=== PATIENT | male | born 1995 | race Caucasian/White ===

== ENCOUNTER 2021-03-02 19:28 | Outpatient (REF) | payer OTHER, SELFPAY ==
--- NOTE | ~2021-03-02 | MR_ITS ---
MRI OF THE BRAIN WITHOUT IV CONTRAST INDICATION: Migraine. COMPARISON: None available TECHNIQUE: Multiplanar multisequence MR imaging of the brain was obtained without IV contrast. 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 The lesion results in leftward deviation of the infundibulum and abuts without resulting in mass effect on the undersurface of the optic chiasm. There is no hydrocephalus, extra-axial surface collection, or herniation. No parenchymal signal abnormality. The major flow voids at the skull base are preserved. There is no acute infarct on diffusion-weighted imaging. There is no intracranial hemorrhage on the gradient recalled echo acquisition. The cerebellar tonsils are normally positioned. The cerebellum and brainstem are normal. The craniocervical junction is normal. Osseous marrow signal intensity is homogenous. The visualized soft tissues are unremarkable. 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 The lesion results in leftward deviation of the infundibulum and abuts without resulting in mass effect on the undersurface of the optic chiasm. Critical findings discussed with Dr. Cho at 8:46 AM on 03/03/2021.
== END 2021-03-02 19:29 | disposition home or self-care (01) ==
LOC: HO.MRI 19:28
PROVIDERS: PCP Nurse Practitioner Family; Visit Provider Nurse Practitioner Family
DX: G43.909 Migraine, unspecified, not intractable, without status migrainosus (principal)
CPT/HCPCS: 70551

== ENCOUNTER 2021-08-28 10:16 | Outpatient (REF) | payer OTHER, SELFPAY ==
[2021-08-28 12:27] LABS: Cortisol Random 6.8 ug/dL
[2021-08-30 11:46] LABS: Follicle Stimulating Hormone 2.3 mIU/mL (1.6-8.0); Lutenizing Hormone 1.5 mIU/mL (1.5-9.3); Prolactin 40.7 ng/mL (2.0-18.0)
[2021-09-02 11:12] LABS: Testosterone, Total 42 ng/dL (250-1100)
== END 2021-08-28 10:17 | disposition home or self-care (01) ==
LOC: HO.HMGCLDS 10:16
PROVIDERS: PCP Nurse Practitioner Family; Visit Provider Internal Medicine Endocrinology, Diabetes & Metabolism
DX: E23.6 Other disorders of pituitary gland (principal)
CPT/HCPCS: 36415; 82533; 83001; 83002; 84146; 84403

== ENCOUNTER 2022-07-14 08:12 | Outpatient (REF) | payer OTHER, SELFPAY ==
[2022-07-14 10:37] LABS: MANUAL DIFF FLAG NO
[2022-07-14 10:41] LABS: Basophils Absolute Auto 0.1 X10*3/uL (0.0-0.2); Eosinophils Absolute Auto 0.2 X10*3/uL (0.0-0.4); Eosinophils Percent Auto 3.8 % (0-4); Hematocrit 44.8 % (42.0-52.0); Imm Gran Abs Auto 0.01 X10*3/uL (0.00-0.03); Imm Gran Pct Auto 0.2 % (0.0-0.4); Lymphocytes Absolute Auto 2.2 X10*3/uL (1.2-4.9); Lymphocytes Percent Auto 44.7 % (20-40); Mean Corpuscular HGB Conc 33.5 g/dl (31.0-36.0); Mean Corpuscular Hemoglobin 29.6 pg (27.0-33.0); Mean Corpuscular Volume 88.5 fL (80.0-98.0); Mean Platelet Volume 9.6 fL (9.4-12.4); Monocytes Absolute Auto 0.4 X10*3/uL (0.1-1.2); Monocytes Percent Auto 7.5 % (2-11); Neutrophils Absolute Auto 2.1 x10*3/uL (2.0-8.3); Neutrophils Percent Auto 42.8 % (45-73); Platelet Count 169 X10*3/uL (160-400); Red Blood Count 5.06 X10*6/uL (4.60-5.80); Red Cell Distribution Width 12.2 % (11.0-16.0); White Blood Count 4.9 X10*3/uL (4.8-10.8)
[2022-07-14 11:03] LABS: Alanine Aminotransferase 83 U/L (0-40); Albumin Level 4.2 g/dL (3.5-5.0); Alkaline Phosphatase 54 U/L (39-117); Anion Gap 10 (12-20); Aspartate Amino Transferase 35 U/L (5-37); Bilirubin Total 0.7 mg/dL (0.0-1.0); Blood Urea Nitrogen 15 mg/dL (9-16); Calcium 9.3 mg/dL (8.4-10.2); Carbon Dioxide 28 mmol/L (22-29); Chloride 107 mmol/L (96-108); Cholesterol 232 mg/dL; Estimated Glomerular Filt Rate > 60; Glucose Fasting 91 mg/dL (60-99); HDL Cholesterol 45 mg/dL; LDL Cholesterol Calculated 164 mg/dl; Potassium 4.2 mmol/L (3.3-5.1); Sodium 141 mmol/L (135-145); Total Protein 6.8 g/dL (6.5-8.0); Triglycerides 119 mg/dL
[2022-07-14 11:20] LABS: TSH reflex Free T4 2.79 uIU/mL (0.32-4.0)
[2022-07-14 13:34] LABS: Appearance Urine Clear; Color Urine Yellow; Glucose Urine UA Negative (Negative); Leukocyte Esterase Urine Negative (Negative); Nitrite Urine Negative (Negative); Specific Gravity - Urine 1.025 (1.005-1.025); UMIC TRIGGER UACC YES; Urine Blood Negative (Negative); Urine Ketones Negative (Negative); Urine Protein 30 (1+) mg/dL (Neg-Trace)
[2022-07-14 13:37] LABS: Bacteria Urine None Seen (None Seen); RBC Urine 0-2 /HPF (0-2); Squamous Epithelial Cell Urine 0-2 /HPF (0-2); WBC Urine 0-5 /HPF (0-5)
[2022-07-18 07:29] LABS: HBS Num1 0.51 mIU/mL (0-7.99); HBc Num1 0.13 S/CO (0.00-0.79); HBsAGNum1 0.39 S/CO (0.00-0.99); Hepatitis A Antibody IgM 0.16 Index (0-0.79); Hepatitis B Core Antibody Nonreactive (Nonreactive); Hepatitis B Surface Antigen Negative (Negative); ~HepC Num1 0.09 S/CO (0.00-0.79); ~Hepatitis A Antibody IgM Nonreactive (Nonreactive); ~Hepatitis B Surface Antibody NONREACTIVE (Nonreactive); ~Hepatitis C Antibody Nonreactive (Nonreactive)
== END 2022-07-14 08:13 | disposition home or self-care (01) ==
LOC: HO.HMGCLDS 08:12
PROVIDERS: PCP Nurse Practitioner Family; Visit Provider Nurse Practitioner Family
DX: G43.909 Migraine, unspecified, not intractable, without status migrainosus (principal); R74.8 Abnormal levels of other serum enzymes; F41.9 Anxiety disorder, unspecified
CPT/HCPCS: 36415; 80053; 80061; 81001; 84443; 85025; 86704; 86706; 86709; 86803; 87340

== ENCOUNTER 2022-07-26 10:00 | Outpatient (REF) | payer OTHER, SELFPAY ==
--- NOTE | ~2022-07-26 | US_ITS ---
EXAMINATION: US ABDOMEN COMPLETE CLINICAL INFORMATION: Elevated liver enzymes. COMPARISON: None available. TECHNIQUE: Real-time imaging of the abdominal viscera. Technically limited study secondary to bowel gas. FINDINGS: PANCREAS: The visualized portions of the pancreas are unremarkable but a large portion of the gland is obscured by bowel gas. ABDOMINAL AORTA: The visualized portions are unremarkable but large portions of the aorta are obscured by bowel gas. INFERIOR VENA CAVA: Visualized portions are normal. LIVER: The liver is normal in size. The liver contour is normal. There is diffuse increased liver parenchymal echogenicity, consistent with hepatic steatosis. No focal hepatic lesion. There is no intrahepatic biliary duct dilatation seen. GALLBLADDER: Normal. The gallbladder is physiologically distended without evidence of stones, sludge, polyps, wall thickening or pericholecystic fluid. COMMON BILE DUCT: Normal in caliber measuring 0.39 cm in diameter. RIGHT KIDNEY: Normal. No hydronephrosis. No renal calculi or focal parenchymal lesions. The kidney measures 10.5 cm in maximum dimension. LEFT KIDNEY: Normal. No hydronephrosis. No renal calculi or focal parenchymal lesions. The kidney measures 10.9 cm in maximum dimension. SPLEEN: Normal. The spleen measures 11.2 cm in maximum dimension. FREE FLUID: None. US/US abdomen complete IMPRESSION: Hepatic steatosis.
[2022-07-26 11:39] LABS: Appearance Urine Clear; Color Urine Yellow; Glucose Urine UA Negative (Negative); Leukocyte Esterase Urine Negative (Negative); Nitrite Urine Negative (Negative); Specific Gravity - Urine 1.015 (1.005-1.025); Urine Blood Negative (Negative); Urine Ketones Negative (Negative); Urine Protein Negative (Neg-Trace)
[2022-07-26 11:46] LABS: Bacteria Urine None Seen (None Seen); Hyaline Casts Urine 0-2 /LPF (0-2); RBC Urine 0-2 /HPF (0-2); Squamous Epithelial Cell Urine 0-2 /HPF (0-2); WBC Urine 0-5 /HPF (0-5)
== END 2022-07-26 10:01 | disposition home or self-care (01) ==
LOC: HO.HMGCX 10:00
PROVIDERS: PCP Nurse Practitioner Family; Visit Provider Nurse Practitioner Family
DX: R74.8 Abnormal levels of other serum enzymes (principal); R80.9 Proteinuria, unspecified
CPT/HCPCS: 76700; 81001; 87086

== ENCOUNTER 2022-10-03 14:00 | Outpatient (AMB) | payer OTHER, SELFPAY ==
[2022-10-03 14:19] VITALS: BP 110/78; PULSE 66; O2SAT 97; BMI 37.8
--- NOTE | 2022-10-03 14:19 | MHC.PC.OV ---
Vital Signs 10/03/22 14:19 Height 5 ft 7 in Weight 241 lb 6 oz BMI 37.8 BP 110/78 Blood Pressure Location Lt brachial Position Sitting Pulse 66 Pulse Source Pulse Oximeter Pulse Oximetry (%) 97 Oxygen Delivery Method Room Air Intake Visit Reasons: Annual PE Allergies No Known Allergies Allergy (Verified 10/03/22 14:21) Medication List - Last Reconciled 10/03/22 by [facility] cabergoline 0.5 mg PO 2XW sumatriptan succinate take 1 tab at onset of headache; if no relief may repeat 1 tab after at least 2 hrs; max = 4 tabs/24 hr PO 30 days Tobacco use date assessed: 10/03/22 Dental Screening Dental Screen Date: 10/03/22 Did you have a dental visit in the last 12 months?: No Did you have a dental problem in the last 6 months where you did not have access to dental care?: No Was dental information given to patient?: No HPI Annual PE HPI Details Pt is here for a PE. Will order labs. 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 He has not heard anything about this. Will place new referral. Pt will call me if he does not hear anything about this. Pt has seen endo for this as well and was told it was shrinking. [facility] Medical History Fatty liver Pituitary adenoma Pituitary apoplexy Family History Father Substance use disorder Mother Substance use disorder Social History Housing: Apartment Patient Tobacco Use Status: Former Tobacco user Years Smoked: quit 6 months ago e-Cigarette/Vaping Use: Currently Using Second Hand Smoke Exposure: No service: No Current occupational status: employed Current occupation: [employer] Current occupational exposures/hazards: No Cognitive needs: No Hearing needs: No Vision needs: No Questionnaire Thrive Questionnaire Date Thrive assessed: 02/23/21 DEEPTHI-7 AMB Questionnaire DEEPTHI-7 Date DEEPTHI - 7 assessed: 02/23/21 Source: Developed by Drs. Miguel Angel Garduno, Latha Fletcher, Lalo Hood and colleagues, with an educational kristin from [employer]. Review of Systems Const Denies chills and Denies fever(s) Eyes Denies blurry vision ENT Denies vertigo, Denies dizziness and Denies sore throat Card Denies chest pain at rest, Denies chest pain with activity, Denies diaphoresis, Denies dyspnea and Denies dyspnea on exertion Resp Denies cough, Denies dyspnea, Denies dyspnea on exertion and Denies wheezing GI Denies abdominal pain, Denies melena, Denies hematochezia, Denies constipation, Denies diarrhea and Denies loose stools Denies hematuria Musc Denies numbness and Denies tingling Skin/Breast Denies lesions Neuro Denies vertigo, Denies dizziness, Denies numbness and Denies tingling Psych Denies anxiety, Denies depression, Denies homicidal ideation, Denies suicidal ideation and Denies other (substance abuse) Aller/Immun Denies wheezing Physical exam (Primary Care) Vital Signs: Last Vital Signs Pulse 66 10/03/22 14:19 BP 110/78 10/03/22 14:19 Pulse Ox 97 10/03/22 14:19 Oxygen Delivery Method Room Air 10/03/22 14:19 BMI result Body Mass Index 37.8 Tobacco/Smoking Status: Tobacco use Status Tobacco use date assessed 10/03/22 10/03/22 14:23 Patient Tobacco Use Status Former Tobacco user 10/03/22 14:23 e-Cigarette/Vaping Use Currently Using 10/03/22 14:23 Thrive Assessment: Date of Thrive Assessment Date Thrive assessed 02/23/21 10/03/22 14:23 Const General: cooperative Nutritional Appearance: obese Orientation/consciousness: patient oriented x3 HENMT Head: Yes normal to inspection, Yes normocephalic and Yes atraumatic Ears: TM's normal bilaterally Eyes General: appearance normal, both eyes and all related structures Alignment and Position: alignment normal and position normal Neck Neck: Yes normal visual inspection and Yes no lymphadenopathy Thyroid: Thyroid normal Resp Effort & Inspection: normal respiratory effort Auscultation: clear to auscultation bilaterally Cardio Rate: regular rate Rhythm: regular rhythm Heart sounds: S1 normal heart sound present, S2 normal heart sound present and no murmurs GI Palpation (GI): Soft to palpation and nontender Auscultation: normal bowel sounds Male General Exam: Yes normal external exam Penis: normal penis Scrotum: scrotum normal, testes descended bilaterally and no inguinal hernias Testes: no testicular mass Skin Rashes: no rashes Neuro General: patient oriented x3, moves all extremities, no focal motor deficits and deep tendon reflexes 2+ bilaterally Romberg Test: Negative Psych Appearance: grossly normal Mental Status: mental status grossly normal Speech and movement: Normal speech and movement present Affect: normal affect Attitude: cooperative Thought process: Normal thought process present Thought content: Normal thought content present Insight: Good insight present (Psych) Judgement: Good judgement present (Psych) Assessment and Plan Assessment & Plan (1) Physical exam: Code(s): Z00.00 - Encounter for general adult medical examination without abnormal findings (2) 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 Scribed for CHRISTOPHER Dupree-MISSY by Kathrine Poole medical information officer, on 10/03/2022 at 14:25 EST. Orders: Orders Comprehensive [place]. Panel Fast Today Z00.00 - Encounter for general adult medical examination without abnormal findings Lipid Panel Today Z00.00 - Encounter for general adult medical examination without abnormal findings TSH reflex Free T4 Today Z00.00 - Encounter for general adult medical examination without abnormal findings Complete Blood Count Auto Diff Today Z00.00 - Encounter for general adult medical examination without abnormal findings UA CC w/rflx Micro + Cult Today Z00.00 - Encounter for general adult medical examination without abnormal findings Referrals Neuro Spine Referral D35.2 - Benign neoplasm of pituitary gland, E23.6 - Other disorders of pituitary gland Medications: New ibuprofen 600 mg PO TID 30 days PRN 90 tabs 0RF pain Coding Level of Care Code Est Pt Prev Care 18-39y(80204) Diagnoses Physical exam Z00.00 Pituitary apoplexy E23.6 Pituitary adenoma D35.2
== END 2022-10-03 14:48 | disposition home or self-care (01) ==
PROVIDERS: Visit Provider Nurse Practitioner Family
DX: Z00.00 Encounter for general adult medical examination without abnormal findings (principal); E23.6 Other disorders of pituitary gland; D35.2 Benign neoplasm of pituitary gland
CPT/HCPCS: 99395

== ENCOUNTER 2024-08-30 12:45 | Emergency (ER) | payer OTHER, SELFPAY ==
--- NOTE | ~2024-08-30 | XR_ITS ---
CLINICAL HISTORY: trauma, pain, swelling 3 view left ankle Comparison: None provided Findings: No acute fractures. Ankle mortise intact. No significant loss of joint space, osteophytes, or erosions. There is an ankle effusion. No radiopaque foreign body. There is anterolateral soft tissue swelling. IMPRESSION: No acute fracture or dislocation. This document has been electronically signed by: Vaishnavi Mercado DO on 08/30/2024 14:02:04
[2024-08-30 13:26] VITALS: BP 119/82; PULSE 79; RESP 20; TEMP 36.1; O2SAT 98; BMI 32.9
--- NOTE | 2024-08-30 13:29 | ED.GENADULT ---
HPI - General Adult General Chief complaint: Extremity Injury, Lower Stated complaint: ankle injury Time Seen by Provider: 08/30/24 15:19 Source: patient and RN notes reviewed Limitations: no limitations History of Present Illness HPI narrative: 28-year-old male, history of pituitary adenoma, presents for evaluation left ankle pain. Patient states he was stepping off of a trailer when he slipped, twisted the ankle. He is unable to bear weight. Decreased range of motion. He denies any previous injury. The incident occurred just prior to arrival. He denies any paresthesias or paralysis. He did not take any medication for this. Patient is otherwise feeling well. He did not strike his head. Related Data Home Medications ?Medication ?Instructions ?Recorded ?Confirmed cabergoline 0.5 mg tablet 0.5 mg PO 2XW 04/24/21 10/03/22 Previous Rx's ?Medication ?Instructions ?Recorded sumatriptan succinate 25 mg tablet See Rx Instructions PO .COMPLEX 30 07/06/21 days #14 tabs ibuprofen 600 mg tablet 600 mg PO TID PRN pain 30 days #90 10/03/22 tabs naproxen 500 mg tablet (Naprosyn) 500 mg PO BID PRN pain #20 tabs 08/30/24 Allergies Allergy/AdvReac Type Severity Reaction Status Date / Time No Known Allergies Allergy Verified 08/30/24 13:29 Review of Systems Review of Systems: Yes all other systems are reviewed and are negative Musculoskeletal: Musculoskeletal: Denies back pain, Denies deformity and Denies joint swelling PMFSH Past Medical History Medical History Fatty liver Pituitary adenoma Pituitary apoplexy Family History Family History Father Substance use disorder Mother Substance use disorder Social History Social History Housing: Apartment Patient Tobacco Use Status: Former Tobacco user Years Smoked: quit 6 months ago e-Cigarette/Vaping Use: Currently Using Second Hand Smoke Exposure: No Advance Directives: No Advance Directives Information Provided: No Do you have a plan to hurt others: No Plan service: No Current occupational status: employed Current occupation: [employer] Current occupational exposures/hazards: No Cognitive needs: No Hearing needs: No Vision needs: No Physical Exam ED Vital Signs: Vital Signs - 24 hr 08/30/24 13:26 Temperature 96.9 F Pulse Rate 79 Respiratory Rate 20 Blood Pressure 119/82 Pulse Oximetry 98 Oxygen Delivery Method Room Air BMI result Body Mass Index 32.9 Const General: cooperative, alert and awake Resp Other: Lung sounds clear throughout Cardio Other: Regular rate and rhythm Back/Spine/Pelvis Other: [employer] is 5/5 bilaterally. Full range of motion of the lower extremities except the left ankle secondary to pain. There was soft tissue swelling and slight ecchymosis to the lateral aspect of the left malleolus. Diffuse tenderness in this region. There is no proximal tibial tenderness. No 5th metatarsal tenderness. No metatarsal tenderness. DP pulses are +1 and equal. Capillary refill is less than 2 seconds Skin Other: No skin breakdown surrounding the left ankle. Course Course Course Narrative: Medical screening exam performed. Please refer to detailed history, exam, evaluation, and management by primary provider. Slipped and twisted left ankle. Unable to bear weight or move foot. DP pulses are +1. Capillary refills less than 2 seconds. Tylenol and x-ray ordered. Reevaluation(s) Reevaluation #1: Reviewed x-ray findings, no acute process. Aircast to the left ankle provided as well as crutches. Reviewed all discharge instructions. Patient expressed understanding and has no further questions at this time. Work note provided. Medications Administered Discontinued Medications Generic Name Dose Route Start Last Admin Trade Name Freq PRN Reason Stop Dose Admin Acetaminophen 975 mg 08/30/24 13:29 08/30/24 13:31 Acetaminophen 325 Mg Tablet PO 08/30/24 13:30 975 mg ONCE ONE Administration Medical Decision Making Medical Decision Making MDM Narrative: 28-year-old male, left ankle injury. Check x-ray for suspected fracture. Differential Diagnosis Differential Diagnoses: The differential diagnosis associated with the presentation includes Fracture Dislocation Contusion Sprain Radiology Impression Discussion of test interpretation with radiology: I have reviewed the radiologist's reading. Radiologist Impression: [address] [address] XRay Report Signed Patient: Toni Cruz MR#: [id number] : 1995 Acct:[id number] Age/Sex: 28 / M ADM Date: 08/30/24 Loc: HO.ED Attending Dr: Ordering Physician: Amor Rodrigues Date of Service: 08/30/24 Procedure(s): XR ankle LT min 3V Accession Number(s): [id number] cc: Alexsander Noel [facility]-; Amor Rodrigues~ CLINICAL HISTORY: trauma, pain, swelling 3 view left ankle Comparison: None provided Findings: No acute fractures. Ankle mortise intact. No significant loss of joint space, osteophytes, or erosions. There is an ankle effusion. No radiopaque foreign body. There is anterolateral soft tissue swelling. IMPRESSION: No acute fracture or dislocation. This document has been electronically signed by: Vaishnavi Mercado DO on 08/30/2024 14:02:04 Dictated By: Vaishnavi Mercado MD Signed By: <Electronically signed by Vaishnavi Mercado MD in OV> 08/30/24 1403 DD/ 01 TD/TT: 08/30/241401 Thermodynamicist: Prescription Management I considered prescription management with: Pain Medication Discharge Plan Discharge Clinical Impression: Left ankle sprain Patient Disposition: Home, Self-Care Instructions: Ankle Sprain (ED) Additional Instructions: Rest. Ice. Elevate. Air cast and crutches as directed. Weightbear as tolerated. Naproxen as directed for pain. Take with food. Orthopedic referral provided, if needed. Follow-up with your primary care provider. Call this week to schedule a follow-up appointment. Return to the emergency department if you have any worsening of symptoms, or any concerns. Get well soon! Prescriptions: New naproxen [Naprosyn] 500 mg tablet 500 mg PO BID PRN (Reason: pain) Qty: 20 0RF No Action ibuprofen 600 mg tablet 600 mg PO TID PRN (Reason: pain) 30 Days Qty: 90 0RF cabergoline 0.5 mg tablet 0.5 mg PO 2XW sumatriptan succinate 25 mg tablet See Rx Instructions PO .COMPLEX 30 Days Qty: 14 0RF Rx Instructions: take 1 tab at onset of headache; if no relief may repeat 1 tab after at least 2 hrs; max = 4 tabs/24 hr PO Referrals: Jennifer Newell MD [Physician, Hand Surgery] Stand Alone Forms: Work/School Release Print Language: Prydeinig
[2024-08-30 15:41] VITALS: BP 119/82; PULSE 79; RESP 20; TEMP 36.1; O2SAT 98
== END 2024-08-30 15:41 | disposition home or self-care (01) ==
PROVIDERS: Emergency Provider Emergency Medicine; PCP Nurse Practitioner Family
DX: S93.402A Sprain of unspecified ligament of left ankle, initial encounter (principal); X50.1XXA Overexertion from prolonged static or awkward postures, initial encounter; Y93.9 Activity, unspecified; Y92.9 Unspecified place or not applicable; Y99.8 Other external cause status; Z79.899 Other long term (current) drug therapy; Z87.891 Personal history of nicotine dependence
CPT/HCPCS: 73610; 99283

== ENCOUNTER → 2024-08-30 13:29 | Outpatient (BNV) | payer OTHER, SELFPAY | PROVIDERS: PCP Nurse Practitioner Family; Visit Provider Radiology Diagnostic Radiology | DX: R22.42 Localized swelling, mass and lump, left lower limb (principal); M25.572 Pain in left ankle and joints of left foot; S99.912A Unspecified injury of left ankle, initial encounter | CPT/HCPCS: 73610 ==

== ENCOUNTER 2024-12-29 10:56 | Outpatient (AMB) | payer OTHER, SELFPAY ==
[2024-12-29 11:09] VITALS: BP 118/70; PULSE 61; O2SAT 96; BMI 39.5
--- NOTE | 2024-12-29 11:09 | MHC.PC.OV ---
Vital Signs 12/29/24 11:09 Height 5 ft 7 in Weight 252 lb BMI 39.5 BP 118/70 Pulse 61 Pulse Oximetry (%) 96 Oxygen Delivery Method Room Air Intake Visit Reasons: PE Overdue Tools Administrator Required: No Allergies No Known Allergies Allergy (Verified 08/30/24 13:29) Medication List - Last Reconciled 12/29/24 by Alexsander Noel PATIENT CARE NURSING ASSISTANT- cabergoline 0.5 mg PO 2XW ibuprofen 600 mg PO TID PRN 30 days naproxen (Naprosyn) 500 mg PO BID PRN Tobacco use date assessed: 12/29/24 Dental Screening Dental Screen Date: 12/29/24 Did you have a dental visit in the last 12 months?: Yes Did you have a dental problem in the last 6 months where you did not have access to dental care?: No Was dental information given to patient?: Patient has dentist HPI PE Overdue HPI Details History of Present Illness The patient is a 29-year-old male presenting for a physical exam. He reports doing well overall. He has a history of pituitary adenoma/ pituitary apoplexy, for which he sees neurosurgery on a regular basis. The patient reports the adenoma has shrunk recently. His medical history is also significant for obesity. Health Maintenance The plan includes administering a Tdap vaccine today, advising the patient to get a flu vaccine at his pharmacy, and ordering fasting labs to be done in the near future. 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 Review of Systems - General: Reports doing well. - Cardiovascular: Denies chest pain. - Respiratory: Denies shortness of breath. - Gastrointestinal: Denies abdominal pain, blood in stool, constipation, or diarrhea. - Genitourinary: Denies urinary issues. - Psychiatric: Denies suicidal or homicidal ideation. Physical Exam General: Cooperative, healthy appearing, comfortable, no acute distress, well developed, and obese Orientation: Patient oriented x3 Limitations: No limitations Head: Normal to inspection Ears: Hearing grossly normal bilaterally Nose: Normal external nose present Face and sinus: Normal facial exam Eyes: Appearance normal, both eyes and all related structures Neck: Normal visual inspection and Yes full ROM Respiratory: Normal respiratory effort and able to speak in complete sentences. Clear to auscultation bilaterally Cardiovascular: Regular rate and rhythm. Normal S1 and S2 GI: Normal to inspection. Soft to palpation and nontender : testicles without masses/lesions and no hernias appreciated Skin: No rashes or lesions noted Neuro: Patient oriented x3 Extremities: Normal to inspection Results Plan 1. Pituitary Adenoma The patient has a history of pituitary adenoma and is followed by neurosurgery on a regular basis. He reports it has shrunk since the last evaluation. He will continue to follow up with neurosurgery. 2. Obesity The patient is obese. Discussion Notes I will have him receive a Tdap today. I advised that he can get his flu vaccine at his pharmacy. He will also get fasting labs in the near future. Patient Instructions - Please get your flu vaccine at your local pharmacy. - You will need to have fasting blood tests done in the near future. COUNTS INCLUDE 234 BEDS AT THE [facility] Medical History Fatty liver Pituitary apoplexy Pituitary adenoma Family History Father Substance use disorder Mother Substance use disorder Social History Housing: Apartment Patient Tobacco Use Status: Former Tobacco user Years Smoked: quit 6 months ago e-Cigarette/Vaping Use: Currently Using Second Hand Smoke Exposure: No service: No Current occupational status: employed Current occupation: [employer] Current occupational exposures/hazards: No Cognitive needs: No Hearing needs: No Vision needs: No Questionnaire PHQ-9 Over the last 2 weeks, how often have you been bothered by any of the following problems? 1. Little interest or pleasure in doing things: not at all 2. Feeling down, depressed, or hopeless: not at all 3. Trouble falling or staying asleep, or sleeping too much: not at all 4. Feeling tired or having little energy: not at all 5. Poor appetite or overeating: not at all 6. Feeling bad about yourself - or that you are a failure or have let yourself or your family down: not at all 7. Trouble concentrating on things, such as reading the newspaper or watching television: not at all 8. Moving or speaking so slowly that other people could have noticed. Or the opposite - being so fidgety or restless that you have been moving around a lot more than usual: not at all 9. Thoughts that you would be better off or of hurting yourself in some way: not at all Total score: 0 Depression Screening Interpretation: Negative Depression Screening Done: Yes 21465 - PHQ-9 Billing: Yes Source: Developed by Drs. Miguel Angel Garduno, Latha Fletcher, Lalo Hood and colleagues, with an educational kristin from [employer]. Thrive Questionnaire Date Thrive assessed: 02/23/21 I am a: Patient What is your living situation today?: I have a steady place to live Within the past 12 months, did the food you bought not last and you didn't have the money to get more?: Never true Within the past 12 months, did you worry whether your food would run out before you got money to buy more?: Never true Do you have trouble paying for medicines?: No Do you have trouble getting transportation to medical appointments?: No Do you have trouble paying your heating and electricity bill?: No Do you have trouble taking care of your child, family member or friend?: No Do you have trouble with day-to-day activities such as bathing, preparing meals, shopping, managing finances, etc.?: No Are you currently unemployed and looking for a job?: No Are you interested in more education?: No Please select the resources that you would like help with: None Currently or been in a relationship where the following occur: No concerns reported THRIVE Score: 0 AUDIT C Alcohol Use Questionnaire (AUDIT-C) 1. How often do you have a drink containing alcohol?: Never Total Score: 0 DEEPTHI-7 AMB Questionnaire DEEPTHI-7 Date DEEPTHI - 7 assessed: 12/29/24 Feeling nervous, anxious, or on edge: 0 = Not at all Not being able to stop or control worryin = Not at all Worrying too much about different things: 0 = Not at all Trouble relaxin = Not at all Being so restless that it is hard to sit still: 0 = Not at all Becoming easily annoyed or irritable: 0 = Not at all Feeling afraid as if something awful might happen: 0 = Not at all Total DEEPTHI-7 score (0-4 normal; 5-9 mild; 10-14 moderate; 15-21 severe): 0 Source: Developed by Drs. Miguel Angel Garduno, Latha Fletcher, Lalo Hood and colleagues, with an educational kristin from [employer]. DEEPTHI-7 Assessment Billing DEEPTHI-7 Assessment Tool: DEEPTHI-7 Assessment 58104 Physical exam (Primary Care) Vital Signs: Last Vital Signs Pulse 61 12/29/24 11:09 BP 118/70 12/29/24 11:09 Pulse Ox 96 12/29/24 11:09 Oxygen Delivery Method Room Air 12/29/24 11:09 BMI result Body Mass Index 39.5 Tobacco/Smoking Status: Tobacco use Status Tobacco use date assessed 12/29/24 12/29/24 11:15 Patient Tobacco Use Status Former Tobacco user 12/29/24 11:15 e-Cigarette/Vaping Use Currently Using 12/29/24 11:15 PHQ-9: PHQ-9 Score PHQ-9: Total score 0 12/29/24 11:35 Depression Screening Interpretation: Negative Thrive Assessment: Date of Thrive Assessment Date Thrive assessed 02/23/21 12/29/24 11:15 Currently or been in a relationship where the following occur: No concerns reported Immunizations Boostrix Tdap 2.5 Lf unit-8 mcg-5 Lf/0.5 mL intramuscular syringe Performing Provider: MIGUE Peterson Performing Location: [facility] Administered by: Elza Jackson MA on 12/29/24 11:48 Dose Route Admin Location Dispensed Lot Number Expiration Date [employer] Cutter 0.5 mL IM Right Deltoid 0.5 mL [id number] 12/11/26 21630-264-49 [employer] Total Dispensed Waste 0.5 mL 0 % VIS Given Date VIS Provided VIS Publication Date 12/29/24 Single Vaccine 20 Eligibility Eligibility Date Funding Source Not [facility] Eligible 12/29/24 Private Coding Level of Care Code Est Pt Prev Care 18-39y(71063) Diagnoses Physical exam Z00.00 Additional Codes DEEPTHI-7 Assessment Billing - DEEPTHI-7 Assessment Tool: DEEPTHI-7 Assessment 11514 ([id number]) PHQ-9 - 96162 - PHQ-9 Billing: Yes ([id number]) Assessment & Plan Assessment & Plan (1) Physical exam: Code(s): Z00.00 - Encounter for general adult medical examination without abnormal findings Category: Medical Plan . Orders: Orders Lipid Panel Today Z00.00 - Encounter for general adult medical examination without abnormal findings TDaP Immunization Today Z23 - Encounter for immunization Complete Blood Count Auto Diff Today Z00.00 - Encounter for general adult medical examination without abnormal findings Comprehensive [place]. Panel Fast Today Z00.00 - Encounter for general adult medical examination without abnormal findings TSH reflex Free T4 Today Z00.00 - Encounter for general adult medical examination without abnormal findings UA CC w/rflx Micro + Cult Today Z00.00 - Encounter for general adult medical examination without abnormal findings
--- OUTSIDE RECORDS SUMMARY | 2024-12-29 13:05 | XMS_ITS | Patient Health Record ---
Demographics Address [address] [place] [address] Email Address Preferred Language en Marital Status unmarried Gnosticism Affiliation Unknown Race White Ethnic Group Unknown Author Organization [facility] [place] Address [address] [place] [address] Care Team Providers Care Concrete Bucket Unloader Name Role Phone Alexsander Roque Primary Care Provider Anjana Marta Aguirre Unavailable [phone] Reason For Referral No Information Social History Tobacco Use: Social History Observation Description Date Details (start date - stop date) Never Smoker NA - NA Tobacco Use/Smoking Question Answer Notes Are you a: nonsmoker Alcohol Screen Question Answer Notes Did you have a drink containing alcohol in the p ast year? No Points 0 Interpretation Negative Tobacco use other than smoking: Question Answer Notes Are you an other tobacco user? No Plan Of Treatment No Information Insurance Providers Payer Name Payer Address Payer Phone Subscriber Number Group Number Insured Name Patient Relationship to Insured Coverage Start Date Coverage End Date [facility] [address] [facility] [id number] [place] Natural Child - Insured does not have Financial Responsibility (includes legally adopted child) Medical (General) History Surgical History Surgery Date(Month/Year) wrist surgery 2015
--- OUTSIDE RECORDS SUMMARY | 2024-12-29 13:05 | XMS_ITS | Clinical Summary ---
Author Organization [facility] Address [address] [place] [address] Phone Care Team Providers Care Core Piler Name Role Phone Alexsander Noel NP Primary Care Provider [phone] Surgical History Surgery Date Site/Laterality Comments OTHER SURGICAL HISTORY Left PROCEDURE: [place] ARTHROSCOPY WRIST DIAG W/WO SYNOVIAL BIOPSY SPX Medical History Medical History Date Comments Headache DX:Headache Social History Tobacco Use Types Packs/Day Years Used Date Smoking Tobacco: Never Assessed Sex and Gender Information Value Date Recorded Sex Assigned at Not on file Legal Sex Male 3:52 AM EST Gender Identity Not on file Sexual Orientation Not on file Obstetrics History Plan of Treatment Health Maintenance Due Date Last Done Comments DTaP,Tdap,and Td Vaccines (1 - Tdap) 2016 Hepatitis B Vaccines (1 of 3 - 19+ 3-dose series) 2016 HIV Screening 01/21/2022 Hepatitis C Screening 01/21/2022 Social Influencers of Health Screening 01/21/2022 Depression Screening 02/19/2024 HPV Vaccines (1 - 3-dose SCD M series) 2024 COVID-19 Vaccine (4 - 2024-2 6 season) 2024 02/08/2021, 07/10/2020, 06/12/2020 Influenza Vaccine (#1) 2024 01/06/2016 RSV Immunization Adult Patients (1 - 1-dose 75+ series) 2072 HIB Vaccines Aged Out No longer eligi ble based on patient's age to complete this topic Hepatitis A Vaccines Aged Out No long er eligible based on patient's age to complete this topic IPV Vaccines Aged Out No longer eligi ble based on patient's age to complete this topic MMR Vaccines Aged Out No longer eligi ble based on patient's age to complete this topic Meningococcal ACWY Vaccine Aged Out N o longer eligible based on patient's age to complete this topic Meningococcal B Vaccine Aged Out No l onger eligible based on patient's age to complete this topic Pneumococcal Vaccine: Pediatrics (0 to 5 Years) and At-Risk Patients (6 to 49 Years) Aged Out No longer eligible b ased on patient's age to complete this topic RSV Immunization Patients Under 20 months Aged Out No longer eligible b ased on patient's age to complete this topic Varicella Vaccines Aged Out No longer eligible based on patient's age to complete this topic Insurance [employer] Care Teams Core Piler Relationship Specialty Start Date End Date Alexsander Noel NP [address] [facility] [place] PCP - General 03/06/21
--- OUTSIDE RECORDS SUMMARY | 2024-12-29 13:05 | XMS_ITS | Continuity of Care Document ---
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 Onset: 0 09/04/2021 Social History Type Date Description Comments Sex Male Sex Unknown Allergies and adverse reactions Description No Known Drug Allergies Medications Active Medications SIG Qnty Indications Ordering Provider Date Testosterone1.62% Gel apply 2 pumps every morning (1 pump to each shoulder) 75gm Will Olson M.D. 08/31/2024 Cabergoline0.5mg Tablets 1 tab by mouth twice a week as directed 24tabs Will Olson M.D. 09/04/2021 History Medications Wegovy0.25mg/0.5ML Solution Auto-Inject inject 0.5 mg weekly for one month 2ml Will Olson M.D. 12/23/2024 - 12/29/2024 Vital Signs Date Vital Result Comment 12/23/2024 9:58am Height 67 inches 5'7 Weight 255.12 lb BMI (Body Mass Index) 40.0 kg/m2 Results Test Acquired Date Facility Test Result H/L Range N ote Comp. Metabolic Panel (14) 09/02/2024 [facility] Glucose 92 mg/dL 70-99 BUN 16 mg/dL 6-20 Creatinine 0.88 mg/dL 0.76-1.27 eGFR 122 mL/min/1.73 >59 BUN/Creatinine Ratio 18 9-20 Sodium 141 mmol/L 134-144 Potassium 4.4 mmol/L 3.5-5.2 Chloride 105 mmol/L 96-106 Carbon Dioxide, Total 21 mmol/L 20-29 Calcium 9.1 mg/dL 8.7-10.2 Protein, Total 6.3 g/dL 6.0-8.5 Albumin 4.2 g/dL Low 4.3-5.2 Globulin, Total 2.1 g/dL 1.5-4.5 Bilirubin, Total 0.2 mg/dL 0.0-1 .2 Alkaline Phosphatase 43 IU/L Low 44-121 Ast (Sgot) 31 IU/L 0-40 Alt (SGPT) 65 IU/L High 0-44 Cortisol 09/02/2024 [facility] Cortisol 18.1 g/dL 6.2-19.4 1 Igf-1 With Z-Score 09/02/2024 [facility] Insulin-Like Growth Factor I 222 ng/mL 101-307 Igf-1, Z Score 0.6 S.D. -2.0 - +2.0 1 Please Note: The ref erence interval and flagging for this test is for an AM collection. If this is a PM collection please use: Cortisol PM: 2.3-11.9 Procedures Date Code Description Status 01/08/2022 NSHOWOFF No Show Office Visit Complet ed Medical Devices Description No Information Available Encounters Type Date Location Provider Dx Diagnosis Office Visit 12/23/2024 10:00a Main Office Will Olson M.D. D35.2 Benign neoplasm of pituitary gland E29.1 Testicular hypofunct ion Assessments Date Code Description Provider 12/23/2024 D35.2 Benign neoplasm of pituitary gland Will Olson M.D. 12/23/2024 E29.1 Testicular hypofunction Will Olson M.D. Plan of Treatment Future Appointment(s):* 06/24/2025 8:45 am - Will Olson M.D. at Main Office 12/23/2024 - Will Olson M.D.* D35.2 Benign neoplasm of pituitary gland * E29.1 Testicular hypofunction * Functional Status Description No Information Available Mental Status Description No Information Available Referrals Description No Information Available
== END 2024-12-29 11:49 | disposition home or self-care (01) ==
LOC: HO.HMCC 10:57
PROVIDERS: PCP Nurse Practitioner Family; Visit Provider Nurse Practitioner Family
DX: Z23 Encounter for immunization (principal); Z00.00 Encounter for general adult medical examination without abnormal findings

== ENCOUNTER → 2024-12-29 10:56 | Outpatient (BNVA) | payer OTHER, SELFPAY | PROVIDERS: PCP Nurse Practitioner Family; Visit Provider Nurse Practitioner Family | DX: Z00.00 Encounter for general adult medical examination without abnormal findings (principal); Z23 Encounter for immunization; Z79.1 Long term (current) use of non-steroidal anti-inflammatories (NSAID); Z79.899 Other long term (current) drug therapy | CPT/HCPCS: 90471; 90715; 96127 ==